=== PATIENT | female | born 1955 | race Caucasian/White ===

== ENCOUNTER 2019-04-13 11:02 | Emergency (ER) | payer OTHER ==
[~2019-04-13] VITALS: Ht 160 cm; Wt 64.9 kg
[2019-04-13 11:06] VITALS: Ht 160 cm; Wt 64.9 kg
[2019-04-13 13:35] VITALS: BP 141/99
== END 2019-04-13 13:44 | disposition home or self-care (01) ==
LOC: ED 11:02
DX: J44.1 Chronic obstructive pulmonary disease with (acute) exacerbation (principal); F17.210 Nicotine dependence, cigarettes, uncomplicated; Z86.19 Personal history of other infectious and parasitic diseases
CPT/HCPCS: 99406; J7512; J7613; J7644; Q0092